=== PATIENT | male | born 1945 | race American Indian/Alaskan Native ===

== ENCOUNTER → 2016-08-11 | Outpatient (CLI) | payer MEDICARE ==
[~2016-08-11] MED LIST: CENTRUM SILVER1 TAB PO; CRESTOR10 MG PO; NORCO 5-325 TA1 EACH PO; ZOCOR80 MG PO
== END | disposition disaster alternative care site (69) ==
LOC: GRAD 08:47
DX: I71.4 Abdominal aortic aneurysm, without rupture (principal)
CPT/HCPCS: Q9967

== ENCOUNTER 2016-08-19 13:00 | Inpatient (IN) | payer MEDICARE ==
[~2016-08-19] VITALS: Ht 172.7 cm; Wt 79.4 kg
--- NOTE | ~2016-08-19 | OR ---
PATIENT'S NAME: ANAMARIA DUNN [facility] AGE: 70 Y [address] ROOM: [place] [address] LOCATION: GPCU ADMIT DATE: 08/26/2016 OR/Procedure Report DISCHARGE DATE: FAMILY PHYSICIAN: Serjio Cortes MD ATTENDING PHYSICIAN: RG JOHNSON SURGEON: Clark Pastor MD RECRUITMENT ADVERTISING MANAGER: None. DATE OF PROCEDURE: 08/26/2016 PROCEDURE: Left radial arterial line placement. INDICATION FOR PROCEDURE: Need for perioperative [id number]-bi-[id number] blood pressure monitoring. PREOPERATIVE DIAGNOSES: 1. Abdominal aortic aneurysm. 2. Hypertension. 3. Hyperlipidemia. 4. History of tobacco abuse. POSTOPERATIVE DIAGNOSES: 1. Abdominal aortic aneurysm. 2. Hypertension. 3. Hyperlipidemia. 4. History of tobacco abuse. COMPLICATIONS: None noted. ESTIMATED BLOOD LOSS: Less than 5 mL. CONSENT: Informed consent obtained preoperatively including discussed risks, benefits, and alternatives. Mr. Dunn stated his understanding of the above procedures, risks, benefits, alternatives, and agreed for me to proceed. PROCEDURE IN DETAIL: After induction of anesthesia, the patient was placed in supine position. Left wrist supinated, sterile prep with ChloraPrep. Utilizing real-time ultrasound guidance, a 20-gauge Arrow catheter was used to cannulate the left radial artery. On the second attempt, pulsatile blood flow over wire. A 20-gauge Arrow catheter was inserted without difficulty. Wire and needle removed intact. Catheter de-aired and secured with sterile occlusive Tegaderm dressing. Good correlation with noninvasive blood pressure monitoring. PATIENT'S NAME: ANAMARIA DUNN [facility] AGE: 70 Y [address] ROOM: [place] [address] LOCATION: GPCU ADMIT DATE: 08/26/2016 OR/Procedure Report DISCHARGE DATE: FAMILY PHYSICIAN: Serjio Cortes MD ATTENDING PHYSICIAN: RG JOHNSON CLARK PASTOR MD RRS/modl /[id number] d: 08/26/16 1846 t: 09/08/16 1342, OPERATIVE SUMMARY
--- NOTE | ~2016-08-19 | CON ---
PATIENT'S NAME: ANAMARIA DUNN [facility] AGE: 70 Y [address] ROOM: [place] [address] LOCATION: GPCU ADMIT DATE: 08/26/2016 Consultation DISCHARGE DATE: FAMILY PHYSICIAN: Serjio Cortes MD ATTENDING PHYSICIAN: RG NOVOA DATE OF CONSULTATION: 08/26/2016 REFERRING PHYSICIAN: Rafael Rico HISTORY: This is a 70-year-old gentleman, in the operating room for an AAA procedure per Dr. Novoa. Nurses were unable to place a Barrios catheter. I was called. The patient is intubated. Upon review of the record, he has a history of prostate cancer and is status post prostatectomy. I suspect he has a bladder neck obstruction. The patient was prepped and draped. A 16 coude catheter was passed. Indeed, hangs up at the bladder neck. I passed a filiform through and into the bladder. I then used dilators up to 20-Uzbek without any trauma. I then placed an 18 Mecca-tip catheter over the filiform and into the bladder. We had good return of clear urine. The patient remains in the operating room in stable condition for his procedure per Dr. Novoa. I would recommend that we leave this catheter in place for 1 to 2 weeks to allow for some passive dilation. If he is able to be discharged tomorrow as planned, he can go home with the catheter in place and follow up with me as an outpatient. IMPRESSION: 1. Bladder neck obstruction/contracture. 2. History of prostate cancer status post radical prostatectomy contributing to bladder neck obstruction/contracture. 3. Abdominal aortic aneurysm. PLAN: As above. YOLY RICO MD [facility] [place] PATIENT'S NAME: ANAMARIA DUNN [facility] AGE: 70 Y [address] ROOM: [place] [address] LOCATION: GPCU ADMIT DATE: 08/26/2016 Consultation DISCHARGE DATE: FAMILY PHYSICIAN: Serjio Cortes MD ATTENDING PHYSICIAN: RG NOVOA /[id number] CC: MD Shantel Muhammad d: 08/26/16 1103 t: 09/02/16 0951, CONSULTATION REPORT
--- NOTE | ~2016-08-19 | OR ---
PATIENT'S NAME: ANAMARIA DUNN [facility] AGE: 70 Y [address] ROOM: [place] [address] LOCATION: GPCU ADMIT DATE: 08/26/2016 OR/Procedure Report DISCHARGE DATE: FAMILY PHYSICIAN: Serjio Cortes MD ATTENDING PHYSICIAN: JONAS JOHNSON SURGEON: Jonas Johnson MD PROOF MACHINE OPERATOR: DATE OF PROCEDURE: 08/26/2016 PREOPERATIVE DIAGNOSIS: Abdominal aortic aneurysm. POSTOPERATIVE DIAGNOSIS: Abdominal aortic aneurysm. PROCEDURE: Endovascular repair of aortic aneurysm. FRENCH TRANSLATOR: JUSTIN Cox. ANESTHESIA: General. ESTIMATED BLOOD LOSS: 250 mL. OPERATIVE FINDINGS: Aneurysm repaired at the end of the case without any evidence of endoleak. DESCRIPTION OF PROCEDURE: The patient was brought to the lab associate, placed under general anesthesia, prepped and draped in a sterile manner. Preoperative time-out was performed. The patient received preoperative antibiotics. We made a standard cutdown on the right groin, dissected down to the fascia, incised the fascia in a longitudinal manner. We gained proximal and distal control with vessel loops of the common femoral artery. We then gained access to the contralateral side. Using standard percutaneous technique, we placed a 7- Estonian sheath into the contralateral side. We then placed an 8-Estonian sheath into the ipsilateral side using also standard technique. We passed a Glidewire on the ipsilateral side followed by a pigtail catheter which was exchanged for a Lunderquist wire, which was placed in the chest. We loaded the main body device, which was a 25 [id number] AFX2 bifurcated device on the stiff wire and advanced the contralateral wire up through the 19 FOD APX introducer sheath using wire guide. Contralateral wire snared and pulled out the contralateral side. AFX2 bifurcated device was then transferred into the AFX introducer sheath and advanced under the floor until distal limbs were above the aortic bifurcation releasing the limbs of the graft. We pulled the entire system down on the aortic bifurcation, deployed the main body of the graft by pulling on the control cord handle. We deployed the contralateral limb by pulling the yellow limb cover and then advancing a pigtail catheter over the contralateral wire until the tip was in contact with the wire lock. We held the pigtail PATIENT'S NAME: ANAMARIA DUNN [facility] AGE: 70 Y [address] ROOM: [address] [address] LOCATION: GPCU ADMIT DATE: 08/26/2016 OR/Procedure Report DISCHARGE DATE: FAMILY PHYSICIAN: Serjio Cortes MD ATTENDING PHYSICIAN: JONAS JOHNSON catheter in place and pulled on the wire to release it from the wire lock. We deployed the ipsilateral limb by pinning the inner cord and retract the AFX introducer sheath. We advanced a 28 28 C75 O20 Solano device in the infrarenal endograft position and performed angiogram to visualize renal arteries. We removed the sheath and began deployment by trying to control and fully deploy the device, however, we were unsatisfied with the location and we felt that it was too proximal and I was not getting good seal at the level of the renal, so we deployed a second Solano device which was the same size about this first one and we were able to place that right at the renal vessels. We removed the extension delivery device from the AFX introducer sheath and advanced the balloon to the proximal end and endograft main body, balloon endograft system throughout the body and ipsilateral limb. We inserted a 12 x 4 balloon from the contralateral side and ballooned the contralateral limb of the bifurcated device. We performed an angiogram to inspect for any visible endoleaks, none were found, and closure was performed. The patient tolerated the procedure well, transferred to recovery room, and then to the floor. MD SANDRO MURPHY/nancyl /[id number] d: 08/26/162114 t: 08/29/161811, OPERATIVE SUMMARY
--- NOTE | ~2016-08-19 | CON ---
PATIENT'S NAME: ANAMARIA DUNN [facility] AGE: 70 Y [address] ROOM: [place] [address] LOCATION: GPCU ADMIT DATE: 08/26/2016 Consultation DISCHARGE DATE: FAMILY PHYSICIAN: Serjio Cortes MD ATTENDING PHYSICIAN: RG NOVOA DATE OF CONSULTATION: 08/26/2016 REQUESTING PHYSICIAN: Dr. Novoa. CONSULTING PHYSICIAN: Dr. Pham. REASON FOR CONSULTATION: Medical management. HISTORY OF PRESENT ILLNESS: The patient is a 70-year-old male who is postop day 0 today for repair of a 5 x 5 x 6 cm aortic aneurysm. A medical consult has been requested for inpatient management. At this point, the patient feels well. Denies any fevers, chills, nausea, vomiting, chest pain, or palpitations. REVIEW OF SYSTEMS: All systems have been reviewed and are negative aside from pertinent positives mentioned above. PAST MEDICAL HISTORY: Significant for hypercholesterolemia and prostate cancer, status post surgery. PAST SURGICAL HISTORY: Significant for resection of prostate cancer. SOCIAL HISTORY: Significant for distant history of tobacco use. FAMILY HISTORY: Reviewed and is noncontributory due to advanced age and known underlying etiology for his hospitalization. MEDICATIONS: 1. Multivitamin. PATIENT'S NAME: ANAMARIA DUNN [facility] AGE: 70 Y [address] ROOM: [place] [address] LOCATION: GPCU ADMIT DATE: 08/26/2016 Consultation DISCHARGE DATE: FAMILY PHYSICIAN: Serjio Cortes MD ATTENDING PHYSICIAN: RG NOVOA 2. Crestor 10. 3. Simvastatin 80. PHYSICAL EXAMINATION: VITAL SIGNS: Blood pressure is 134/60 via A-line, respirations 18, pulse is 91, temperature 97.5, and saturating 95% on 3 L nasal cannula. GENERAL: He appears as an elderly male, in no acute distress. NEUROLOGICAL: Nonfocal. EYES: Pupils are equal and reactive to light. LYMPHATIC: No cervical lymphadenopathy. ENDOCRINE: No thyromegaly. LUNGS: Clear to auscultation. HEART: Regular with no appreciable murmurs, gallops, or rubs. GASTROINTESTINAL: Abdomen is soft, nontender, and nondistended. GENITOURINARY: A Barrios which required placement by urologist. VASCULAR: Reveals 2+ pedal pulses bilaterally. SKIN: Warm and dry. MUSCULOSKELETAL: Unremarkable. LABORATORY DATA: Lab studies from today are significant for a normal CBC. IMPRESSION AND RECOMMENDATIONS: This is a 70-year-old male postop day 0 for placement of an abdominal aortic aneurysm. At this point, the patient is doing well. We will recommend managing the following problems: 1. Double statin therapy. I am not sure why he is on this regimen, but we will check his LFTs with routine blood draw tomorrow. 2. Benign prostatic hyperplasia. The patient might benefit from addition of a Flomax upon discharge. At this point, I would not start it due to blood pressures dipping into 100 systolic on the A-line as I am examining the patient. 3. Stool regimen. Given the multiple opioids the patient is receiving, I will upgrade his bowel regimen. Additional management will depend on clinical course. Time dedicated for this patient's encounter is 25 minutes. MD BARBY COHEN/modl PATIENT'S NAME: ANAMARIA DUNN [facility] AGE: 70 Y [address] ROOM: [address] [address] [facility] AD[facility] DATE: 08/26/2016 Consultation DISCHARGE DATE: FAMILY PHYSICIAN: Serjio Cortes MD ATTENDING PHYSICIAN: RG NOVOA /[id number] d: 08/26/161752 t: 08/31/16 1234, CONSULTATION REPORT
[~2016-08-19 13:00] MED LIST changes: -NORCO 5-325 TA1 EACH PO
[2016-08-26 06:41] LABS: BASOPHIL # 0.1 K/uL (0.0-0.2); BASOPHIL % 0.6 %; EOSINOPHIL # 0.2 K/uL (0.0-0.5); EOSINOPHIL % 2.4 %; HEMATOCRIT 43.5 % (37.0-53.0); HEMOGLOBIN 14.9 g/dL (11.0-16.0); IMMATURE GRANULOCYTE # 0.1 K/uL (0.0-0.3); IMMATURE GRANULOCYTE % 0.5 %; LYMPHOCYTE # 2.8 K/uL (0.8-4.0); LYMPHOCYTE % 27.9 %; MCH 29.9 pg (27.0-34.0); MCHC 34.3 gm/dL (32.0-36.5); MCV 87.2 fl (83.0-98.0); MONOCYTE % 9.4 %; MPV 10.3 fl (9.4-12.4); NEUTROPHIL % 59.2 %; NRBC % 0 /100WBC (0-0.00); PLATELET COUNT 244 K/uL (150-450); RBC 4.99 M/uL (3.50-5.50); RDW-CV 12.9 % (11.9-14.6); WBC 10.1 K/uL (4.0-11.0)
[2016-08-27 04:40] LABS: BASOPHIL % 0.2 %; EOSINOPHIL % 0.2 %; HEMATOCRIT 36.3 % (37.0-53.0); HEMOGLOBIN 12.1 g/dL (11.0-16.0); IMMATURE GRANULOCYTE # 0.1 K/uL (0.0-0.3); IMMATURE GRANULOCYTE % 0.5 %; LYMPHOCYTE # 2.9 K/uL (0.8-4.0); LYMPHOCYTE % 15.8 %; MCHC 33.3 gm/dL (32.0-36.5); MCV 89.9 fl (83.0-98.0); MONOCYTE # 1.7 K/uL (0.0-1.0); MONOCYTE % 9.4 %; MPV 10.7 fl (9.4-12.4); NEUTROPHIL # (ANC) 13.5 K/uL (1.4-9.0); NEUTROPHIL % 73.9 %; NRBC % 0 /100WBC (0-0.00); RBC 4.04 M/uL (3.50-5.50); RDW-CV 12.9 % (11.9-14.6)
[2016-08-27 04:41] LABS: ALBUMIN 3.2 gm/dL (3.5-5.0); ALK PHOS 65 IU/L (33-138); ALT 23 IU/L (12-78); AST 13 IU/L (10-40); BLOOD UREA NITROGEN 13 mg/dL (6-24); CHLORIDE 111 mMol/L (96-110); CO2 25 mMol/L (22-32); CREATININE 0.9 mg/dL (0.6-1.3); ESTIMATED GFR (MDRD EQUATION) > 60; SODIUM 144 mMol/L (135-145); TOTAL BILIRUBIN 0.3 mg/dL (0.0-1.5); TOTAL PROTEIN 5.7 g/dL (6.0-8.4)
[2016-08-27 04:43] LABS: PLATELET COUNT 194 K/uL (150-450); WBC 18.3 K/uL (4.0-11.0)
[2016-08-27] MEDS ORDERED: NORCO 5-325 TA1 EACH PO (11:33)
== END 2016-08-27 12:30 | disposition disaster alternative care site (69) | DRG 269 ==
LOC: GPCU 08-26 05:42
PROVIDERS: Internal Medicine; ADMIT Surgery Vascular Surgery
PROC: 0T9B70Z Drainage of Bladder with Drainage Device, Via Natural or Artificial Opening (ICD-10-PCS; principal; 2016-08-26)
PROC: 04V03E6 (ICD-10-PCS; 2016-08-26)
DX: I71.4 Abdominal aortic aneurysm, without rupture (principal); N13.8 Other obstructive and reflux uropathy; Z85.46 Personal history of malignant neoplasm of prostate; E78.5 Hyperlipidemia, unspecified; Z87.891 Personal history of nicotine dependence; Z79.82 Long term (current) use of aspirin; E78.00 Pure hypercholesterolemia, unspecified; N40.1 Benign prostatic hyperplasia with lower urinary tract symptoms
CPT/HCPCS: C1725; C1760; C1769; C1874; C1887; C1894; C2628; J0690; J1100; J1644; J1650; J2001; J2250; J2405; J2720; J3480; J7030